=== PATIENT | female | born 1965 | race Two or more races ===

== ENCOUNTER 2023-01-22 17:46 | Emergency (ER) | payer MEDICAID ==
[~2023-01-22] VITALS: Ht 152.4 cm; Wt 64.4 kg
[2023-01-22] MEDS ORDERED: KETOROLAC TROMETHAMINE 15 MG/ML VIAL IM ONE (19:00)
[2023-01-22] MEDS ORDERED: CYCLOBENZAPRINE 10 MG TABLET PO ONE (19:00)
[2023-01-22] MEDS ORDERED: CYCLOBENZAPRINE 10 MG TABLET ONE (19:04)
[2023-01-22] MEDS ORDERED: KETOROLAC TROMETHAMINE 15 MG/ML VIAL ONE (19:04)
[2023-01-22] MEDS ORDERED: LIDO30AD10 TP (20:53)
[2023-01-22] MEDS ORDERED: CYCL5TAB PO (20:53)
[2023-01-22] MEDS ORDERED: IBUP-1953 PO (20:53)
[2023-01-22 21:00] VITALS: BP 126/77; TEMP 98; O2SAT 99
== END 2023-01-22 21:01 | disposition home or self-care (01) ==
LOC: ER 17:49
DX: S13.4XXA Sprain of ligaments of cervical spine, initial encounter (principal); S80.02XA Contusion of left knee, initial encounter; S90.31XA Contusion of right foot, initial encounter; S09.8XXA Other specified injuries of head, initial encounter; V89.2XXA Person injured in unspecified motor-vehicle accident, traffic, initial encounter; Y93.89 Activity, other specified; Y92.89 Other specified places as the place of occurrence of the external cause; Y99.8 Other external cause status
CPT/HCPCS: 99285; 72125; 71045; 96372; 73630; 73564; 70450; 72128; J1885